=== PATIENT | female | born 1995 | race Caucasian/White ===

== ENCOUNTER → 2024-08-17 06:47 | Outpatient (REF) | payer BC, OTHER, SELFPAY | LOC: PNTC 06:47 | PROVIDERS: ATTENDING PHYSICIAN Obstetrics & Gynecology | DX: Z36.0 Encounter for antenatal screening for chromosomal anomalies (principal); Z36.82 Encounter for antenatal screening for nuchal translucency | CPT/HCPCS: 76801; 76813 ==

== ENCOUNTER → 2024-10-07 07:20 | Outpatient (REF) | payer BC, OTHER, SELFPAY | LOC: PNTC 07:20 | PROVIDERS: ATTENDING PHYSICIAN Obstetrics & Gynecology | DX: Z34.82 Encounter for supervision of other normal pregnancy, second trimester (principal) | CPT/HCPCS: 76805; 76817 ==

== ENCOUNTER 2025-02-07 03:25 | Inpatient (IN) | payer BC, SELFPAY ==
[2025-02-07 03:33] VITALS: BMI 25.9
[2025-02-07 03:45] VITALS: BP 132/95
[2025-02-07] MEDS: LR 1000 IV ×4 (04:37→17:58)
[2025-02-07] MEDS: TUMS CHEWABLE TABLET 400 MG PO ×2 (04:39→13:14)
[2025-02-07] MEDS: STADOL 1 MG IV ×2 (04:40→07:25)
[2025-02-07 04:51] LABS: Hematocrit 38.5 % (37.0-47.0); Hemoglobin 13.0 g/dL (12.0-16.0); Mean Corp Hgb Conc. 33.8 g/dL (33.0-37.0); Mean Corpuscular Volume 87.5 fL (81.0-99.0); Nucleated Red Blood Cells % 0 %; Platelet Count 301 10^3/uL (130-400); Red Cell Dist. Width 12.4 % (11.5-14.5)
[2025-02-07 05:14] LABS: ALT (SGPT) < 10 U/L (0-35); AST (SGOT) 16 U/L (14-36); Albumin 3.6 g/dl (3.5-5.0); Alkaline Phosphatase 234 U/L (38-126); Blood Urea Nitrogen 12 mg/dl (7-17); Calcium 10.3 mg/dl (8.4-10.2); Carbon Dioxide 20 mmol/L (22-30); Chloride 108 mmol/L (98-107); Estimated Creatinine Clearance > 125 ml/min; Glucose 79 mg/dl (70-99); Potassium 4.1 mmol/L (3.5-5.1); Sodium 134 mmol/L (135-145); Total Protein 6.7 g/dl (6.3-8.2); eGFR > 60.00
[2025-02-07] MEDS: FENTANYL/BUPIVACAINE 100 EPIDURAL ×2 (09:51→17:57)
[2025-02-07] MEDS: SUBLIMAZE 100 MCG EPIDURAL (09:51)
[2025-02-07] MEDS: PITOCIN 30 UNITS/NSS 500 ML IV (10:44)
[2025-02-07] MEDS: COLACE 100 MG PO (19:40)
[2025-02-07] MEDS: TYLENOL 650 MG PO (19:40)
[2025-02-08] MEDS: TYLENOL 650 MG PO ×2 (01:26→17:12)
[2025-02-08] MEDS: MOTRIN 600 MG PO ×3 (04:08→17:12)
[2025-02-08] MEDS: TUMS CHEWABLE TABLET 400 MG PO ×2 (04:08→17:16)
[2025-02-08 04:21] LABS: Hematocrit 36.9 % (37.0-47.0); Hemoglobin 12.3 g/dL (12.0-16.0)
[2025-02-08] MEDS: COLACE 100 MG PO ×2 (07:56→20:35)
[2025-02-08] MEDS: PRENATAL PLUS 1 TABLET PO (07:56)
[2025-02-08 14:56] LABS: Syphilis/T. pallidum Ab Reflex Negative (Negative)
[2025-02-08] MEDS: PROCARDIA XL (EXTENDED RELEASE) 30 MG PO (17:12)
[2025-02-09] MEDS: PRENATAL PLUS 1 TABLET PO ×2 (07:51→07:57)
[2025-02-09] MEDS: TUMS CHEWABLE TABLET 400 MG PO (07:51)
[2025-02-09] MEDS: PROCARDIA XL (EXTENDED RELEASE) 30 MG PO ×2 (07:57→09:27)
[2025-02-09] MEDS: MOTRIN 600 MG PO (07:57)
[2025-02-09] MEDS: COLACE 100 MG PO ×2 (07:58→20:21)
[2025-02-09] MEDS: PROCARDIA XL (EXTENDED RELEASE) PO (07:58)
[2025-02-10] MEDS: MOTRIN 600 MG PO ×2 (00:34→07:59)
[2025-02-10] MEDS: TYLENOL 650 MG PO ×2 (00:34→07:59)
[2025-02-10] MEDS: PROCARDIA XL (EXTENDED RELEASE) 60 MG PO (07:58)
[2025-02-10] MEDS: PRENATAL PLUS 1 TABLET PO (07:58)
[2025-02-10] MEDS: COLACE 100 MG PO (07:59)
== END 2025-02-10 12:43 | disposition home or self-care (01) | DRG 807 ==
LOC: LDRP 03:25
PROVIDERS: Student in an Organized Health Care Education/Training Program; ADMITTING PHYSICIAN Obstetrics & Gynecology; FAMILY PHYSICIAN Family Medicine
PROC: 10E0XZZ Delivery of Products of Conception, External Approach (ICD-10-PCS; 2025-02-07)
PROC: 0HQ9XZZ Repair Perineum Skin, External Approach (ICD-10-PCS; 2025-02-07)
DX: O70.0 First degree perineal laceration during delivery (principal); Z37.0 Single live birth; Z3A.37 37 weeks gestation of pregnancy; O76 Abnormality in fetal heart rate and rhythm complicating labor and delivery
CPT/HCPCS: 80053; 82570; 84156; 85014; 85018; 85025; 86780; 86850; 86900; 86901